=== PATIENT | female | born 1960 | race African-American/Black ===

== ENCOUNTER 2017-11-19 09:43 | Day surgery (SDC) | payer OTHER ==
[2017-11-18 15:54] VITALS: BMI 51.7
[2017-11-19] MEDS ORDERED: LIDOCAINE VISCOUS 2% ORAL/TOP 20 ML UNIT-DOSE CUP ONE ×2 (10:11→11:06)
[2017-11-19 10:51] VITALS: TEMP 98.2
[2017-11-19 11:15] VITALS: PULSE 58
[2017-11-19 11:42] VITALS: BP 174/77
== END 2017-11-19 11:46 | disposition home or self-care (01) ==
LOC: JASU-ENDO 09:43
PROVIDERS: ATTEND Surgery
PROC: 0DJ08ZZ Inspection of Upper Intestinal Tract, Via Natural or Artificial Opening Endoscopic (ICD-10-PCS; principal; 2017-11-19 11:00)
DX: E66.01 Morbid (severe) obesity due to excess calories (principal); Z01.818 Encounter for other preprocedural examination; I10 Essential (primary) hypertension; E11.9 Type 2 diabetes mellitus without complications; Z79.84 Long term (current) use of oral hypoglycemic drugs
CPT/HCPCS: 82962

== ENCOUNTER 2017-12-24 06:59 | Observation (INO) | payer OTHER ==
[2017-12-23 10:19] VITALS: BMI 51.1
[2017-12-24] MEDS ORDERED: ACETAMINOPHEN INJECTION 100 ML IVPB ONE (07:14)
[2017-12-24] MEDS ORDERED: BUPIVACAINE HCL/PF 0.5% (5MG/ML) 10 ML VIAL ONE (07:42)
[2017-12-24] MEDS ORDERED: LIDOCAINE HCL/PF 2% SDV 5ML VIAL ONE (09:18)
[2017-12-24] MEDS ORDERED: DEXAMETHASONE SOD PHOSPHATE 4 MG/1 ML VIAL ONE (09:18)
[2017-12-24] MEDS ORDERED: fentaNYL CITRATE 250 MCG/5 ML VIAL ONE (09:18)
[2017-12-24] MEDS ORDERED: PROPOFOL 20 ML ONE ×2 (09:18)
[2017-12-24] MEDS ORDERED: ROCURONIUM BROMIDE 50 MG/5 ML VIAL ONE ×2 (09:19)
--- NOTE | 2017-12-24 09:47 | HP ---
Admitting History and Physical - Admission Chief Complaint: Morbid obesity History Source: Patient Limitations to Obtaining History: No Limitations - Past Medical History Cardiovascular: Yes: CAD, HTN, Hyperlipdemia Pulmonary: Yes: Sleep Apnea Endocrine: Yes: Diabetes Mellitus - Past Surgical History Past Surgical History: Yes: Hysterectomy - Smoking History Smoking history: Never smoked Have you smoked in the past 12 months: No - Alcohol/Substance Use Hx Alcohol Use: No Home Medications - Allergies Allergies/Adverse Reactions: Allergies Allergy/AdvReac Type Severity Reaction Status Date / Time No Known Allergies Allergy Verified 12/24/17 08:20 - Home Medications Home Medications: Ambulatory Orders Atorvastatin Ca [Lipitor] 40 mg PO HS 11/18/17 Canagliflozin [Invokana] 100 mg PO DAILY 11/18/17 Liraglutide [Victoza -] 0.6 mg SQ DAILY@0700 11/18/17 Losartan Potassium 50 mg PO DAILY 11/18/17 Nifedipine [Procardia Xl] 1 tab PO DAILY 11/18/17 metFORMIN HCL [Metformin HCl] 500 mg PO BID 11/18/17 Family Disease History - Family Disease History Family History: Unremarkable Review of Systems - Review of Systems Constitutional: denies: Chills, Fever HENT: reports: No Symptoms Neck: reports: No Symptoms Cardiovascular: reports: No Symptoms Respiratory: reports: No Symptoms Gastrointestinal: reports: No Symptoms Neurological: denies: Change in LOC Pain Intensity: 0 Physical Examination Vital Signs: Vital Signs Temperature 97.6 F 12/24/17 08:20 Pulse Rate 61 12/24/17 08:20 Respiratory Rate 20 12/24/17 08:20 Blood Pressure 144/80 12/24/17 08:20 O2 Sat by Pulse Oximetry (%) 98 12/24/17 08:14 Constitutional: Yes: Calm Neck: Yes: WNL Cardiovascular: Yes: Regular Rate and Rhythm Respiratory: Yes: CTA Bilaterally Gastrointestinal: Yes: Soft, Abdomen, Obese Neurological: Yes: Alert, Oriented Problem List - Problems (1) Diabetes mellitus type 2 in obese Code(s): E11.69 - TYPE 2 DIABETES MELLITUS WITH OTHER SPECIFIED COMPLICATION; E66.9 - OBESITY, UNSPECIFIED (2) Hypertension Code(s): I10 - ESSENTIAL (PRIMARY) HYPERTENSION Qualifiers: Hypertension type: unspecified Qualified Code(s): I10 - Essential (primary ) hypertension (3) Morbid obesity due to excess calories Code(s): E66.01 - MORBID (SEVERE) OBESITY DUE TO EXCESS CALORIES (4) Obstructive sleep apnea treated with continuous positive airway pressure ( CPAP) Code(s): G47.33 - OBSTRUCTIVE SLEEP APNEA (ADULT) (PEDIATRIC); Z99.89 - DEPENDENCE ON OTHER ENABLING MACHINES AND DEVICES (5) BMI 50.0-59.9, adult Code(s): Z68.43 - BODY MASS INDEX (BMI) 50-59.9 , ADULT Assessment/Plan Laparoscopic possible open vertical sleeve gastrectomy, possible liver biopsy, EGD
--- NOTE | 2017-12-24 11:05 | PN ---
Progress Note (short form) - Note Progress Note: Patient cancelled due to persistent elevated hypertension despite medication given by anesthesia Her crucible packer was consulted and her primary made aware This was explained to her and her daughter They understood and agreed Will wait for discharge until BP controlled Recommended follow up with primary care doctor and crucible packer Problem List - Problems (1) Diabetes mellitus type 2 in obese Code(s): E11.69 - TYPE 2 DIABETES MELLITUS WITH OTHER SPECIFIED COMPLICATION; E66.9 - OBESITY, UNSPECIFIED (2) Hypertension Code(s): I10 - ESSENTIAL (PRIMARY) HYPERTENSION Qualifiers: Hypertension type: unspecified Qualified Code(s): I10 - Essential (primary ) hypertension (3) Morbid obesity due to excess calories Code(s): E66.01 - MORBID (SEVERE) OBESITY DUE TO EXCESS CALORIES (4) Obstructive sleep apnea treated with continuous positive airway pressure ( CPAP) Code(s): G47.33 - OBSTRUCTIVE SLEEP APNEA (ADULT) (PEDIATRIC); Z99.89 - DEPENDENCE ON OTHER ENABLING MACHINES AND DEVICES (5) BMI 50.0-59.9, adult Code(s): Z68.43 - BODY MASS INDEX (BMI) 50-59.9 , ADULT
--- NOTE | 2017-12-24 15:26 | CON.CARD ---
Cardiology Consult (text) - Consultation Consultation Note: Cardiology Patient seen and examined, elective bariatric surgery cancelled today due to hypertension. Of note, she was seen recently in office by Dr. Luther with BP 140/90. On ROS: she denies headache, visual changes, CP, SOB. She feels fine but didn't take her Hyzaar 50/12.5mg nor her Procardia XL 30mg this morning. (Should have taken with sip of H2O). Exam Selected Entries No distress No carotid bruits S1, 2. RRR. No murmurs. NSR. Chest CTA abd obese, NT. No bruits Ext no edema 12/24/17 12/24/17 12/24/17 10:43 11:08 13:35 Temperature 98 F Pulse Rate 77 63 Blood Pressure 197/92 12/24/17 15:21 Temperature Pulse Rate Blood Pressure 197/96 IMP: Chronic HTN, moderately elevated in setting of not taking meds. Asymptomatic. Obesity DM REC: Usual PO home meds now. Re-check BP in one hour. October d/c home when BP < 170/90 with close outpatient f/u Agree with rescheduling elective procedure.
[2017-12-24] MEDS ORDERED: LOSARTAN 50MG/HCTZ 12.5MG 1 TAB (FP) PO SCH (15:30)
[2017-12-24] MEDS ORDERED: LOSARTAN 50MG/HCTZ 12.5MG 1 TAB (FP) PO ONE ×2 (15:47→18:50)
[2017-12-24] MEDS ORDERED: NIFEdipine E.R. 30 MG TABLET (FP) PO ONE (15:47)
[2017-12-24] MEDS ORDERED: LOSARTAN POTASSIUM 50 MG TABLET (FP) PO ONE (20:15)
[2017-12-24] MEDS ORDERED: HYDROCHLOROTHIAZIDE 12.5 MG CAPSULE (FP) PO ONE (20:15)
[2017-12-24] MEDS: hydrALAZINE HCL 10 MG TABLET PO SCH (21:12)
[2017-12-24] MEDS: NIFEdipine E.R. 30 MG TABLET (FP) PO SCH (21:16)
[2017-12-25] MEDS: hydrALAZINE HCL 10 MG TABLET PO SCH (05:49)
[2017-12-25] MEDS ORDERED: hydrALAZINE HCL 10 MG TABLET PO SCH (06:00)
[2017-12-25] MEDS: INSULIN SLIDING SCALE (NOVOLOG) 1 VIAL SQ SCH ×2 (06:12→11:45)
[2017-12-25] MEDS ORDERED: metFORMIN HCL 500 MG TABLET (FP) PO SCH (07:00)
[2017-12-25] MEDS ORDERED: LIRAGLUTIDE 0.6 MG/0.1 ML PEN.INJCTR SQ SCH (07:00)
--- NOTE | 2017-12-25 08:19 | PN ---
Progress Note, Physician Chief Complaint: BP much improved, asymptomatic Dr. Harper was called several hours after I saw her late yest afternoon and had to give additional 50/12.5 of Hyzaar - Current Medication List Current Medications: Active Medications Atorvastatin Calcium (Lipitor -) 40 mg PO HS [facility] Heparin Sodium (Porcine) (Heparin -) 5,000 unit SQ BID [facility] Hydrochlorothiazide (Hctz -) 25 mg PO DAILY [facility] Insulin Aspart (Novolog Vial Sliding Scale -) 1 vial SQ ACHS [facility]; Protocol Last Admin: 12/25/17 06:12 Dose: Not Given Liraglutide (Victoza -) 0.6 mg SQ DAILY@0700 [facility] Last Admin: 12/25/17 06:19 Dose: 0.6 mg Losartan Potassium (Cozaar -) 100 mg PO DAILY [facility] Metformin HCl (Glucophage -) 500 mg PO BIDAC [facility] Last Admin: 12/25/17 06:12 Dose: 500 mg Nifedipine (Procardia Xl -) 30 mg PO DAILY [facility] Last Admin: 12/24/17 21:16 Dose: Not Given Non-Formulary Medication (Canagliflozin [Invokana]) 100 mg PO DAILY [facility] - Objective Vital Signs: Vital Signs Temperature 98.0 F 12/25/17 06:00 Pulse Rate 68 12/25/17 06:00 Respiratory Rate 18 12/25/17 06:00 Blood Pressure 148/67 12/25/17 06:00 O2 Sat by Pulse Oximetry (%) 99 12/25/17 01:45 Constitutional: Yes: No Distress, Calm Cardiovascular: Yes: Regular Rate and Rhythm Respiratory: Yes: CTA Bilaterally Gastrointestinal: Yes: Soft, Abdomen, Obese Edema: No Neurological: Yes: Alert, Oriented ...Motor Strength: WNL Assessment/Plan IMP: Chronic HTN, moderately elevated in setting of not taking meds. Asymptomatic. Obesity DM REC: 1. Check Labs (K+, creat) 2. Agree with increasing her home Hyzaar dose to 100/25mg (Losartan/HCT); continue same dose Procardia XL (Nifedipine). Do not think she needs Hydralazine, will d/c. 3. If labs ok, can d/c home with meds as above and she should f/u in office Thursday with Dr. Luther for BP check and for re-eval for bariatric surgery which was rescheduled. Thanks
--- NOTE | 2017-12-25 08:19 | PN ---
Progress Note, Physician - Current Medication List Current Medications: Active Medications Atorvastatin Calcium (Lipitor -) 40 mg PO HS [facility] Heparin Sodium (Porcine) (Heparin -) 5,000 unit SQ BID [facility] Hydrochlorothiazide (Hctz -) 25 mg PO DAILY [facility] Insulin Aspart (Novolog Vial Sliding Scale -) 1 vial SQ ACHS [facility]; Protocol Last Admin: 12/25/17 06:12 Dose: Not Given Liraglutide (Victoza -) 0.6 mg SQ DAILY@0700 [facility] Last Admin: 12/25/17 06:19 Dose: 0.6 mg Losartan Potassium (Cozaar -) 100 mg PO DAILY [facility] Metformin HCl (Glucophage -) 500 mg PO BIDAC [facility] Last Admin: 12/25/17 06:12 Dose: 500 mg Nifedipine (Procardia Xl -) 30 mg PO DAILY [facility] Last Admin: 12/24/17 21:16 Dose: Not Given Non-Formulary Medication (Canagliflozin [Invokana]) 100 mg PO DAILY [facility] - Objective Vital Signs: Vital Signs Temperature 98.0 F 12/25/17 06:00 Pulse Rate 68 12/25/17 06:00 Respiratory Rate 18 12/25/17 06:00 Blood Pressure 148/67 12/25/17 06:00 O2 Sat by Pulse Oximetry (%) 99 12/25/17 01:45
[2017-12-25] MEDS ORDERED: PT OWN MED DRAWER 7, Y5N ONE ×2 (09:49→09:59)
[2017-12-25] MEDS: NIFEdipine E.R. 30 MG TABLET (FP) PO SCH (09:53)
[2017-12-25] MEDS ORDERED: HYDROCHLOROTHIAZIDE 25 MG TABLET (FP) PO SCH (10:00)
[2017-12-25] MEDS ORDERED: LOSARTAN POTASSIUM 50 MG TABLET (FP) PO SCH ×2 (10:00)
[2017-12-25] MEDS ORDERED: HEPARIN NA (PORCINE) 5,000 UNITS/ML 1ML VIAL SQ SCH (10:00)
[2017-12-25] MEDS ORDERED: PATIENT'S OWN MEDICATION (NON-FORMULARY) (Canagliflozin [Invokana] 100 MG) PO SCH ×2 (10:00→11:00)
[2017-12-25] MEDS ORDERED: NIFEdipine E.R. 30 MG TABLET (FP) PO SCH (10:00)
[2017-12-25 10:04] VITALS: TEMP 98.6
[2017-12-25 11:31] LABS: ANION GAP 9 (8-16); BLOOD UREA NITROGEN 9 mg/dL (7-18); CALCIUM 9.1 mg/dL (8.5-10.1); CHLORIDE 104 mmol/L (98-107); CO2 29 mmol/L (21-32); GLUCOSE,RANDOM 169 mg/dL (74-106); POTASSIUM 3.8 mmol/L (3.5-5.1); SODIUM 142 mmol/L (136-145)
--- NOTE | 2017-12-25 12:07 | ECHO ---
Name: LAMBERT, COLIN Exam:Adult Echocardiogram Study Date: 12/25/2017 10:53 AM Reason For Study: htn accelerated Height: 60 in Weight: 262 lb BSA: 2.1 m2 MMode/2D Measurements & Calculations IVSd: 0.96 cm Ao root diam: 3.0 cm LVIDd: 5.0 cm LA dimension: 3.6 cm LVIDs: 2.9 cm ACS: 1.8 cm LVPWd: 1.2 cm IVSs: 1.2 cm LVPWs: 1.4 cm EDV(Teich): 118.4 ml ESV(Teich): 31.0 ml Doppler Measurements & Calculations MV E max osman: 73.6 cm/sec Ao V2 max: 146.6 cm/sec MV A max osman: 87.5 cm/sec Ao max P.6 mmHg MV E/A: 0.84 Ao V2 mean: 113.3 cm/sec Ao mean P.6 mmHg Ao V2 VTI: 29.9 cm Med Peak E' Osman: 4.9 cm/sec Med E/e': 14.9 Lat Peak E' Osman: 6.3 cm/sec Lat E/e': 11.8 Left Ventricle There is mild concentric left ventricular hypertrophy. Left ventricular systolic function is normal. Right Ventricle The right ventricle is normal in size and function. Atria Normal left and right atrial size and function. Mitral Valve The mitral valve is normal in structure and function. There is no mitral valve stenosis. There is tra ce to mild mitral regurgitation. Tricuspid Valve The tricuspid valve is normal in structure and function. No tricuspid regurgitation. Aortic Valve The aortic valve opens well. No hemodynamically significant valvular aortic stenosis. Pulmonic Valve The pulmonic valve is not well seen, but is grossly normal. There is no pulmonic valvular stenosis. Great Vessels The aortic root is normal size. Pericardium/Pleura There is no pericardial effusion. Interpretation Summary There is mild concentric left ventricular hypertrophy. Left ventricular systolic function is normal. The right ventricle is normal in size and function. There is trace to mild mitral regurgitation. There is no pericardial effusion. MD Abner Arceo 12/25/2017 12:07 PM
[2017-12-25 14:37] VITALS: BP 147/77; PULSE 68
[2017-12-25] MEDS ORDERED: ATORVASTATIN CA 40 MG TABLET (FP) PO SCH (22:00)
== END 2017-12-25 14:59 | disposition home or self-care (01) ==
LOC: JSAMEDAYSX 06:59 → UNDOADMIN 06:59 → JASUSAT 06:59 → EDSTATUS 08:00 → J8W 20:00 → JASUSAT 20:00 → J8W 12-25 01:44
PROVIDERS: ADMIT Internal Medicine; ATTEND Surgery
PROC: 0DB64ZZ Excision of Stomach, Percutaneous Endoscopic Approach (ICD-10-PCS; principal; 2017-12-25)
PROC: 3E033GC Introduction of Other Therapeutic Substance into Peripheral Vein, Percutaneous Approach (ICD-10-PCS; 2017-12-25)
DX: E66.01 Morbid (severe) obesity due to excess calories (principal); I10 Essential (primary) hypertension; I25.10 Atherosclerotic heart disease of native coronary artery without angina pectoris; E78.5 Hyperlipidemia, unspecified; E11.69 Type 2 diabetes mellitus with other specified complication; G47.33 Obstructive sleep apnea (adult) (pediatric); Z99.89 Dependence on other enabling machines and devices; Z68.43 Body mass index [BMI] 50.0-59.9, adult; Z90.710 Acquired absence of both cervix and uterus; Z79.84 Long term (current) use of oral hypoglycemic drugs; Z53.09 Procedure and treatment not carried out because of other contraindication
CPT/HCPCS: 36415; 80048; 82962; 86850; 86900; 86901; 93306-TC; G0378; J0131; J1644

== ENCOUNTER 2018-01-14 09:00 | Inpatient (IN) | payer OTHER ==
[2018-01-11 16:35] VITALS: BMI 48.0
[~2018-01-14 09:00] MED LIST: BUPIVACAINE HCL/PF (5 MG/ML) 30 ML VIAL IJ ONE
[2018-01-14] MEDS ORDERED: PNEUMOC 13-VAL CONJ-DIP CRM/PF 0.5 ML DISP.SYRIN IM ONE (11:17)
--- NOTE | 2018-01-14 13:01 | HP ---
Admitting History and Physical - Admission Chief Complaint: Morbid obesity History Source: Patient Limitations to Obtaining History: No Limitations - Past Medical History Cardiovascular: Yes: CAD, HTN, Hyperlipdemia Pulmonary: Yes: Sleep Apnea Endocrine: Yes: Diabetes Mellitus - Past Surgical History Past Surgical History: Yes: Hysterectomy - Smoking History Smoking history: Never smoked Have you smoked in the past 12 months: No - Alcohol/Substance Use Hx Alcohol Use: Yes (occas) Home Medications - Allergies Allergies/Adverse Reactions: Allergies Allergy/AdvReac Type Severity Reaction Status Date / Time No Known Allergies Allergy Verified 01/11/18 16:42 - Home Medications Home Medications: Ambulatory Orders Atorvastatin Ca [Lipitor] 40 mg PO HS 11/18/17 Canagliflozin [Invokana] 100 mg PO DAILY 11/18/17 Liraglutide [Victoza -] 0.6 mg SQ DAILY@0700 11/18/17 Nifedipine [Procardia Xl] 1 tab PO DAILY 11/18/17 metFORMIN HCL [Metformin HCl] 500 mg PO BID 11/18/17 Aspirin Coated [Ecotrin -] 81 mg PO DAILY 01/11/18 Losartan 50Mg/Hctz 12.5MG [Hyzaar -] 1 tab PO DAILY 01/11/18 Family Disease History - Family Disease History Family History: Unremarkable Review of Systems - Review of Systems Constitutional: denies: Chills, Fever HENT: reports: No Symptoms Neck: reports: No Symptoms Cardiovascular: denies: Chest Pain Respiratory: denies: Cough Gastrointestinal: denies: Abdominal Pain Neurological: reports: No Symptoms Pain Intensity: 0 Physical Examination Vital Signs: Vital Signs Temperature 97.6 F 01/14/18 10:55 Pulse Rate 78 01/14/18 10:55 Respiratory Rate 20 01/14/18 10:55 Blood Pressure 102/62 01/14/18 10:55 O2 Sat by Pulse Oximetry (%) 98 01/14/18 10:49 Constitutional: Yes: Calm HENT: Yes: WNL Neck: Yes: WNL Cardiovascular: Yes: WNL Respiratory: Yes: Regular Gastrointestinal: Yes: Soft, Abdomen, Obese Neurological: Yes: Alert, Oriented Problem List - Problems (1) Hypercholesteremia Code(s): E78.00 - PURE HYPERCHOLESTEROLEMIA, UNSPECIFIED (2) BMI 50.0-59.9, adult Code(s): Z68.43 - BODY MASS INDEX (BMI) 50-59.9 , ADULT (3) Diabetes mellitus type 2 in obese Code(s): E11.69 - TYPE 2 DIABETES MELLITUS WITH OTHER SPECIFIED COMPLICATION; E66.9 - OBESITY, UNSPECIFIED (4) Hypertension Code(s): I10 - ESSENTIAL (PRIMARY) HYPERTENSION Qualifiers: (5) Morbid obesity due to excess calories Code(s): E66.01 - MORBID (SEVERE) OBESITY DUE TO EXCESS CALORIES (6) Obstructive sleep apnea treated with continuous positive airway pressure ( CPAP) Code(s): G47.33 - OBSTRUCTIVE SLEEP APNEA (ADULT) (PEDIATRIC); Z99.89 - DEPENDENCE ON OTHER ENABLING MACHINES AND DEVICES Assessment/Plan Laparoscopic possible open vertical sleeve gastrectomy possible liver biopsy, EGD
[2018-01-14] MEDS ORDERED: DEXAMETHASONE SOD PHOSPHATE 4 MG/1 ML VIAL ONE (13:13)
[2018-01-14] MEDS ORDERED: SUCCINYLCHOLINE CHLORIDE 200 MG/10 ML VIAL ONE (13:13)
[2018-01-14] MEDS ORDERED: PROPOFOL 20 ML ONE ×2 (13:13→15:18)
[2018-01-14] MEDS ORDERED: LIDOCAINE HCL/PF 2% SDV 5ML VIAL ONE (13:13)
[2018-01-14] MEDS ORDERED: ROCURONIUM BROMIDE 50 MG/5 ML VIAL ONE (13:36)
[2018-01-14] MEDS ORDERED: BUPIVACAINE HCL/PF 0.5% (5MG/ML) 10 ML VIAL ONE (13:40)
[2018-01-14] MEDS ORDERED: ePHEDrine SULFATE 50 MG/1 ML AMPULE ONE (13:46)
[2018-01-14] MEDS ORDERED: ceFAZolin SODIUM 1 GM VIAL IVPB ONE (13:52)
[2018-01-14] MEDS ORDERED: GLYCOPYRROLATE 0.2 MG/1 ML VIAL ONE (14:05)
[2018-01-14] MEDS ORDERED: NEOSTIGMINE METHYLSULFATE 0.5 MG/ML - 10 ML MDV ONE (14:06)
[2018-01-14] MEDS ORDERED: ACETAMINOPHEN INJECTION 100 ML IVPB ONE ×2 (14:34→15:24)
[2018-01-14] MEDS ORDERED: ONDANSETRON 4 MG/2 ML VIAL ONE (15:23)
[2018-01-14] MEDS ORDERED: FAMOTIDINE 20 MG/50 ML IVPB 20 MG/50 ML MG IVPB ONE (15:24)
[2018-01-14] MEDS ORDERED: METOCLOPRAMIDE HCL INJECTION 10 MG/2 ML VIAL ONE (15:24)
[2018-01-14] MEDS ORDERED: HYDROmorphone HCL CARPU-JECT 1 MG/1 ML DISP.SYRIN IVPB PRN (15:33)
[2018-01-14] MEDS ORDERED: ONDANSETRON 4 MG/2 ML VIAL IVPUSH PRN (15:37)
[2018-01-14] MEDS ORDERED: PROMETHAZINE HCL 25 MG/1 ML VIAL IVPB PRN (15:37)
[2018-01-14] MEDS ORDERED: ACETAMINOPHEN 1000 MG/100 ML VIAL (NON FORMULARY) IVPB SCH (15:45)
[2018-01-14] MEDS ORDERED: LACTATED RINGERS SOLUTION 1,000 ML IV SCH (15:45)
--- NOTE | 2018-01-14 15:45 | OP ---
Operative Note - Note: Operative Date: 01/14/18 Pre-Operative Diagnosis: Morbid obesity due to excess calories Operation: Laproscopic sleeve gastrectomy, liver biopsy, and EGD Post-Operative Diagnosis: Same as Pre-op Surgeon: Jose Daugherty Solderer Torch: Jesus Zaldivar Anesthesiologist/RUG SIZER: Bret Castaneda Anesthesia: General Estimated Blood Loss (mls): 30 Fluid Volume Replaced (mls): 1,300 Operative Report Dictated: Yes
--- NOTE | 2018-01-14 15:46 | SURG ---
Surgery Ship Mate Note Ship Mate: Jesus Zaldivar PA-C Date of Service: 01/14/18 Diagnosis: Morbid obesity due to excess calories Procedure: laproscopic sleeve gastrectomy, liver biopsy, and EGD I was present for the entirety of the operative procedure. For further detail, please refer to operative report.
[2018-01-14] MEDS: METOCLOPRAMIDE HCL INJECTION 10 MG/2 ML VIAL IVPUSH SCH ×2 (15:51→21:20)
[2018-01-14 16:07] LABS: HEMATOCRIT 37.9 % (32.4-45.2); MCH 24.8 pg (25.7-33.7); MCHC 31.8 g/dl (32.0-36.0); MEAN CELL VOLUME 78.1 fl (80-96); MEAN PLT VOLUME 8.4 fl (7.5-11.1); PLATELET COUNT 356 K/MM3 (134-434); RBC 4.86 M/mm3 (3.60-5.2); WHITE BLOOD COUNT 14.3 K/mm3 (4.0-10.0)
[2018-01-14] MEDS ORDERED: FAMOTIDINE 20 MG PREMIXED IVPB IVPB ONE (16:15)
[2018-01-14] MEDS: SODIUM CHLORIDE 1,000 ML IV SCH (16:27)
[2018-01-14 16:28] LABS: ALBUMIN 3.7 g/dl (3.4-5.0); ANION GAP 11 (8-16); BLOOD UREA NITROGEN 29 mg/dL (7-18); CALCIUM 9.1 mg/dL (8.5-10.1); CHLORIDE 110 mmol/L (98-107); CO2 25 mmol/L (21-32); CREATININE 1.2 mg/dL (0.55-1.02); GLUCOSE,RANDOM 146 mg/dL (74-106); SGOT/AST 30 U/L (15-37); SGPT/ALT 30 U/L (12-78); SODIUM 146 mmol/L (136-145)
[2018-01-14 16:29] LABS: ALK PHOS 72 U/L (45-117); BILIRUBIN,TOTAL 0.4 mg/dL (0.2-1.0); TOT PROT 7.3 g/dl (6.4-8.2)
[2018-01-14 16:31] LABS: POTASSIUM 2.9 mmol/L (3.5-5.1)
[2018-01-14] MEDS ORDERED: LABETALOL HCL 5 MG/1 ML (100MG/20 ML VIAL) ONE (16:51)
[2018-01-14] MEDS ORDERED: POTASSIUM CHLORIDE 10 MEQ in SODIUM CHLORIDE 100 ML IVPB ONE (17:00)
[2018-01-14] MEDS: ONDANSETRON 4 MG/2 ML VIAL IVPUSH SCH ×2 (17:33→21:20)
[2018-01-14] MEDS ORDERED: LABETALOL HCL 5 MG/1 ML (100MG/20 ML VIAL) IVPUSH ONE (17:45)
[2018-01-14] MEDS: ENOXAPARIN NA (PORCINE) 40 MG/0.4 ML DISP.SYRIN SQ SCH (21:18)
[2018-01-14] MEDS: FAMOTIDINE 20 MG/50 ML IVPB 20 MG/50 ML MG IVPB SCH (21:20)
[2018-01-14] MEDS: ACETAMINOPHEN 1000 MG/100 ML VIAL (NON FORMULARY) IVPB SCH (21:21)
[2018-01-14] MEDS: INSULIN SLIDING SCALE (NOVOLOG) 1 VIAL SQ SCH (21:42)
[2018-01-15] MEDS: ONDANSETRON 4 MG/2 ML VIAL IVPUSH SCH ×6 (02:52→21:01)
[2018-01-15] MEDS: ACETAMINOPHEN 1000 MG/100 ML VIAL (NON FORMULARY) IVPB SCH ×2 (03:22→09:00)
[2018-01-15] MEDS: METOCLOPRAMIDE HCL INJECTION 10 MG/2 ML VIAL IVPUSH SCH ×4 (03:22→20:22)
[2018-01-15] MEDS: INSULIN SLIDING SCALE (NOVOLOG) 1 VIAL SQ SCH ×4 (06:16→21:01)
[2018-01-15 06:33] LABS: HEMATOCRIT 35.6 % (32.4-45.2); HEMOGLOBIN 11.7 GM/dL (10.7-15.3); MCH 25.3 pg (25.7-33.7); MCHC 32.8 g/dl (32.0-36.0); MEAN PLT VOLUME 8.5 fl (7.5-11.1); PLATELET COUNT 327 K/MM3 (134-434); RBC 4.62 M/mm3 (3.60-5.2); RDW 16.6 % (11.6-15.6)
[2018-01-15 07:05] LABS: CHLORIDE 107 mmol/L (98-107); SODIUM 143 mmol/L (136-145)
[2018-01-15 07:12] LABS: ALBUMIN 3.4 g/dl (3.4-5.0); ALK PHOS 70 U/L (45-117); ANION GAP 12 (8-16); BILIRUBIN,TOTAL 0.4 mg/dL (0.2-1.0); BLOOD UREA NITROGEN 16 mg/dL (7-18); CALCIUM 8.6 mg/dL (8.5-10.1); CO2 24 mmol/L (21-32); CREATININE 0.9 mg/dL (0.55-1.02); GLUCOSE,RANDOM 94 mg/dL (74-106); SGOT/AST 50 U/L (15-37); SGPT/ALT 39 U/L (12-78)
[2018-01-15 07:28] LABS: POTASSIUM 2.9 mmol/L (3.5-5.1)
--- NOTE | 2018-01-15 08:23 | PN ---
Progress Note, Physician Chief Complaint: POD # 1 Laproscopic sleeve gastrectomy, liver biopsy, and EGD Patient is known to our service from office: PMH obesity, chronic HTN and DM. Asked to evaluate her post op for elevated BP: 170-180/80-90 Has not yet received her morning BP meds. On ROS: she denies CP, SOB, palps. No headache or neuro changes. Alert in no distress. - Current Medication List Current Medications: Active Medications Acetaminophen (Ofirmev Injection -) 1,000 mg IVPB Q6H [facility] Stop: 01/15/18 09:01 Last Admin: 01/15/18 03:22 Dose: Not Given Atorvastatin Calcium (Lipitor -) 40 mg PO HS [facility] Enoxaparin Sodium (Lovenox -) 40 mg SQ BID [facility] Last Admin: 01/14/18 21:18 Dose: 40 mg Fentanyl (Sublimaze Injection -) 50 mcg IVPUSH [id number] PRN PRN Reason: PAIN-PACU ORDER X 4 DOSES ONLY Last Admin: 01/14/18 16:05 Dose: 50 mcg Hydrochlorothiazide (Hctz -) 12.5 mg PO DAILY [facility] Hydromorphone HCl (Dilaudid Injection -) 1 mg IVPB Q3H PRN PRN Reason: PAIN LEVEL 4 - 6 Famotidine/Sodium Chloride (Pepcid 20 Mg Premixed Ivpb -) 20 mg in 50 mls @ 100 mls/hr IVPB BID [facility] Last Admin: 01/14/18 21:20 Dose: 100 mls/hr Sodium Chloride (Normal Saline -) 1,000 mls @ 150 mls/hr IV ASDIR [facility] Last Admin: 01/14/18 16:27 Dose: 150 mls/hr Insulin Aspart (Novolog Vial Sliding Scale -) 1 vial SQ ACHS [facility]; Protocol Last Admin: 01/15/18 06:16 Dose: Not Given Losartan Potassium (Cozaar -) 50 mg PO DAILY [facility] Metoclopramide HCl (Reglan Injection -) 10 mg IVPUSH Q6H-IV [facility] Last Admin: 01/15/18 03:22 Dose: Not Given Nifedipine (Procardia Xl -) 30 mg PO DAILY [facility] Ondansetron HCl (Zofran Injection) 4 mg IVPUSH Q4H-IV [facility] Last Admin: 01/15/18 05:31 Dose: 4 mg Ondansetron HCl (Zofran Injection) 4 mg IVPUSH Q6H PRN PRN Reason: NAUSEA AND/OR VOMITING Promethazine HCl (Phenergan Injection -) 12.5 mg IVPB Q6H PRN PRN Reason: NAUSEA-FOR RESCUE AFTER 15 MIN - Objective Vital Signs: Vital Signs Temperature 99 F 01/15/18 06:00 Pulse Rate 76 01/15/18 06:00 Respiratory Rate 17 01/15/18 06:00 Blood Pressure 190/89 01/15/18 06:00 O2 Sat by Pulse Oximetry (%) 97 01/15/18 01:00 Constitutional: Yes: No Distress, Calm Eyes: Yes: Conjunctiva Clear Cardiovascular: Yes: Regular Rate and Rhythm Respiratory: Yes: CTA Bilaterally Gastrointestinal: Yes: Soft Edema: No Neurological: Yes: Alert, Oriented ...Motor Strength: WNL Labs: CBC, BMP 01/15/18 05:30 01/15/18 05:30 Laboratory Tests 01/15/18 01/15/18 05:30 05:30 WBC 12.0 H Hgb 11.7 Plt Count 327 Sodium 143 Potassium 2.9 L* Creatinine 0.9 - ....Imaging EKG: Pending Assessment/Plan POD # 1 Laproscopic sleeve gastrectomy, liver biopsy, and EGD HTN DM REC: 1. HTN: -Home BP meds to be administered. -Should normalize with usual meds -Goal BP 140/90 for age group 2. Hypokalemia: -Repleting this AM -Repeat BMP in AM -ECG 3. DM: -Hold PO meds until tolerating full PO -consider sliding scale as needed. 4. DVT prophylaxis: -As per surgical team Thank you.
[2018-01-15] MEDS ORDERED: POTASSIUM CHLORIDE 10 MEQ in SODIUM CHLORIDE 100 ML IVPB ONE (08:30)
[2018-01-15] MEDS ORDERED: KCL 10 MEQ IVPB 10 MEQ/100 ML INFUS.BAG IVPB SCH ×3 (08:30→23:15)
[2018-01-15] MEDS: LOSARTAN POTASSIUM 50 MG TABLET (FP) PO SCH (09:00)
[2018-01-15] MEDS: HYDROCHLOROTHIAZIDE 12.5 MG CAPSULE (FP) PO SCH (09:00)
[2018-01-15] MEDS: ENOXAPARIN NA (PORCINE) 40 MG/0.4 ML DISP.SYRIN SQ SCH ×2 (09:00→21:06)
--- NOTE | 2018-01-15 09:07 | PN ---
Progress Note (short form) - Note Progress Note: Anesthesia post op Pt seen and examined S:Alert and awake comfortable O: Vital Signs Temperature 99 F 01/15/18 06:00 Pulse Rate 76 01/15/18 06:00 Respiratory Rate 17 01/15/18 06:00 Blood Pressure 190/89 01/15/18 06:00 O2 Sat by Pulse Oximetry (%) 97 01/15/18 01:00 CBC, BMP 01/15/18 05:30 01/15/18 05:30 A/P Current Active Problems Hypercholesteremia (Acute) s/p lap sleeve gastrectomy Doing well post op Continue current care Cornell Lozoya MD
[2018-01-15] MEDS: SODIUM CHLORIDE 1,000 ML IV SCH (09:40)
[2018-01-15] MEDS: FAMOTIDINE 20 MG/50 ML IVPB 20 MG/50 ML MG IVPB SCH ×2 (09:40→21:01)
[2018-01-15] MEDS: NIFEdipine E.R. 30 MG TABLET (FP) PO SCH (09:40)
--- NOTE | 2018-01-15 09:46 | PN ---
Progress Note (short form) - Note Progress Note: POD#1 Pt without any compaints of CP/SOB. ABd pain under control. No nausea. Voiding on her own. Vital Signs Period Temp Pulse Resp BP Sys/Portillo Pulse Ox Last 24 Hr 97.6 F-99 F 68-83 16-28 102-190/52-89 96-98 GEn: appears comfortable Cv: RRR Lungs: CTA b/l anteriorly ABD: obese, inc c/d/i with bandaids. No ecchymosis. Incision tender to touch LE: no calf tenderness or swelling noted b/l. SCDs in place CBC, BMP 01/15/18 05:30 //18 05:30 A/p: 57 yo female s/p lap vertical sleeve, POD#1 K repleted yesterday and plan for 2 runs today, will recheck BMP/mag/phos at 1500 and replete as needed UGI series today OOB/ambulate DVT px with lovenox SQ/SCDs/ambulate BP elevated this am, plan to take regular oral BP meds this am, continue to monitor D/w Dr. Daugherty <Ce Escobedo - Last Filed: 01/15/18 09:47> - Note Progress Note: Agree Pain was controlled UGI- no leak/obstruction Planned for discharge 01/16/18 once BP controlled <Jose Daugherty - Last Filed: 01/19/18 08:58> Problem List - Problems (1) Hypercholesteremia Code(s): E78.00 - PURE HYPERCHOLESTEROLEMIA, UNSPECIFIED (2) BMI 50.0-59.9, adult Code(s): Z68.43 - BODY MASS INDEX (BMI) 50-59.9 , ADULT (3) Diabetes mellitus type 2 in obese Code(s): E11.69 - TYPE 2 DIABETES MELLITUS WITH OTHER SPECIFIED COMPLICATION; E66.9 - OBESITY, UNSPECIFIED (4) Hypertension Code(s): I10 - ESSENTIAL (PRIMARY) HYPERTENSION Qualifiers: (5) Morbid obesity due to excess calories Code(s): E66.01 - MORBID (SEVERE) OBESITY DUE TO EXCESS CALORIES (6) Obstructive sleep apnea treated with continuous positive airway pressure ( CPAP) Code(s): G47.33 - OBSTRUCTIVE SLEEP APNEA (ADULT) (PEDIATRIC); Z99.89 - DEPENDENCE ON OTHER ENABLING MACHINES AND DEVICES <Jose Daugherty - Last Filed: 01/19/18 08:58>
[2018-01-15] MEDS ORDERED: oxyCODONE HCL 5 MG TABLET PO PRN (17:24)
[2018-01-15] MEDS ORDERED: SODIUM CHLORIDE 1,000 ML IV SCH (17:30)
[2018-01-15 17:45] LABS: ANION GAP 10 (8-16); BLOOD UREA NITROGEN 10 mg/dL (7-18); CALCIUM 8.5 mg/dL (8.5-10.1); CHLORIDE 105 mmol/L (98-107); CO2 26 mmol/L (21-32); CREATININE 0.8 mg/dL (0.55-1.02); GLUCOSE,RANDOM 99 mg/dL (74-106); MAGNESIUM 1.4 mg/dL (1.8-2.4); PHOSPHOROUS 2.5 mg/dL (2.5-4.9); SODIUM 141 mmol/L (136-145)
[2018-01-15 17:48] LABS: POTASSIUM 2.6 mmol/L (3.5-5.1)
[2018-01-15] MEDS ORDERED: POTASSIUM CHLORIDE TABS 20 MEQ TABLET.ER (FP) PO ONE (18:00)
[2018-01-15] MEDS ORDERED: LOSARTAN POTASSIUM 50 MG TABLET (FP) PO ONE (21:30)
[2018-01-15] MEDS ORDERED: NIFEdipine E.R. 30 MG TABLET (FP) PO ONE (21:30)
[2018-01-15] MEDS ORDERED: ATORVASTATIN CA 40 MG TABLET (FP) PO SCH (22:00)
[2018-01-15] MEDS ORDERED: MAGNESIUM SULF 50% (8.12 MEQ/2 ML-1 GM VIAL) IVPB ONE (22:15)
[2018-01-15] MEDS ORDERED: MAGNESIUM 1GM/D5W - 1 GM/100 ML IVPB IVPB ONE (22:45)
[2018-01-16] MEDS: METOCLOPRAMIDE HCL INJECTION 10 MG/2 ML VIAL IVPUSH SCH ×3 (02:06→15:09)
[2018-01-16] MEDS: ONDANSETRON 4 MG/2 ML VIAL IVPUSH SCH ×4 (02:26→13:36)
[2018-01-16] MEDS: INSULIN SLIDING SCALE (NOVOLOG) 1 VIAL SQ SCH ×2 (06:14→11:24)
[2018-01-16 06:52] LABS: BASO % 0.9 % (0-2.0); EOS % 2.8 % (0-4.5); HEMATOCRIT 37.6 % (32.4-45.2); HEMOGLOBIN 12.3 GM/dL (10.7-15.3); LYMPH % 32.6 % (8-40); MCH 25.4 pg (25.7-33.7); MCHC 32.7 g/dl (32.0-36.0); MEAN CELL VOLUME 77.7 fl (80-96); MEAN PLT VOLUME 8.5 fl (7.5-11.1); MONO % 5.5 % (3.8-10.2); NEUT % 58.2 % (42.8-82.8); PLATELET COUNT 354 K/MM3 (134-434); RBC 4.84 M/mm3 (3.60-5.2); RDW 16.7 % (11.6-15.6)
[2018-01-16 07:22] LABS: ANION GAP 10 (8-16); BLOOD UREA NITROGEN 7 mg/dL (7-18); CALCIUM 8.5 mg/dL (8.5-10.1); CHLORIDE 101 mmol/L (98-107); CO2 28 mmol/L (21-32); GLUCOSE,RANDOM 94 mg/dL (74-106); MAGNESIUM 1.6 mg/dL (1.8-2.4); POTASSIUM 3.1 mmol/L (3.5-5.1); SODIUM 139 mmol/L (136-145)
[2018-01-16 07:24] LABS: CREATININE 0.9 mg/dL (0.55-1.02)
--- NOTE | 2018-01-16 09:14 | EKG ---
Test Reason : Blood Pressure : / mmHG Vent. Rate : 069 BPM Atrial Rate : 069 BPM P-R Int : 210 ms QRS Dur : 112 ms QT Int : 390 ms P-R-T Axes : 063 -39 035 degrees QTc Int : 417 ms SINUS RHYTHM WITH 1ST DEGREE A-V BLOCK LEFT AXIS DEVIATION ABNORMAL ECG NO PREVIOUS ECGS AVAILABLE Confirmed by KAMILLE VANG MD ([id number]) on 01/16/2018 9:14:02 AM Referred By: [facility] Confirmed By:KAMILLE VANG MD
--- NOTE | 2018-01-16 10:01 | PN ---
Progress Note, Physician - Current Medication List Current Medications: Active Medications Atorvastatin Calcium (Lipitor -) 40 mg PO HS [facility] Last Admin: 01/15/18 21:01 Dose: 40 mg Enoxaparin Sodium (Lovenox -) 40 mg SQ BID [facility] Last Admin: 01/15/18 21:06 Dose: 40 mg Hydrochlorothiazide (Hctz -) 12.5 mg PO DAILY [facility] Last Admin: 01/15/18 09:00 Dose: 12.5 mg Hydromorphone HCl (Dilaudid Injection -) 1 mg IVPB Q3H PRN PRN Reason: PAIN LEVEL 4 - 6 Famotidine/Sodium Chloride (Pepcid 20 Mg Premixed Ivpb -) 20 mg in 50 mls @ 100 mls/hr IVPB BID [facility] Last Admin: 01/15/18 21:01 Dose: 100 mls/hr Sodium Chloride (Normal Saline -) 1,000 mls @ 150 mls/hr IV ASDIR [facility] Last Admin: 01/15/18 09:40 Dose: 150 mls/hr Sodium Chloride (Normal Saline -) 1,000 mls @ 75 mls/hr IV ASDIR [facility] Last Admin: 01/15/18 18:07 Dose: 75 mls/hr Insulin Aspart (Novolog Vial Sliding Scale -) 1 vial SQ ACHS [facility]; Protocol Last Admin: 01/16/18 06:14 Dose: Not Given Losartan Potassium (Cozaar -) 50 mg PO DAILY [facility] Last Admin: 01/15/18 09:00 Dose: 50 mg Metoclopramide HCl (Reglan Injection -) 10 mg IVPUSH Q6H-IV [facility] Last Admin: 01/16/18 08:59 Dose: 10 mg Nifedipine (Procardia Xl -) 30 mg PO DAILY [facility] Last Admin: 01/15/18 09:40 Dose: 30 mg Ondansetron HCl (Zofran Injection) 4 mg IVPUSH Q4H-IV [facility] Last Admin: 01/16/18 06:14 Dose: 4 mg Ondansetron HCl (Zofran Injection) 4 mg IVPUSH Q6H PRN PRN Reason: NAUSEA AND/OR VOMITING Oxycodone HCl (Roxicodone -) 5 mg PO Q4H PRN PRN Reason: PAIN LEVEL 4 - 6 Promethazine HCl (Phenergan Injection -) 12.5 mg IVPB Q6H PRN PRN Reason: NAUSEA-FOR RESCUE AFTER 15 MIN - Objective Vital Signs: Vital Signs Temperature 99.9 F H 01/16/18 02:00 Pulse Rate 72 01/16/18 06:12 Respiratory Rate 18 01/16/18 06:12 Blood Pressure 108/59 01/16/18 06:12 O2 Sat by Pulse Oximetry (%) 97 01/15/18 18:49 Eyes: Yes: WNL, Conjunctiva Clear, EOM Intact HENT: Yes: WNL, Atraumatic, Normocephalic Neck: Yes: WNL, Supple, Trachea Midline Cardiovascular: Yes: WNL, Regular Rate and Rhythm Respiratory: Yes: WNL, Regular, CTA Bilaterally Gastrointestinal: Yes: WNL, Normal Bowel Sounds Genitourinary: Yes: WNL Musculoskeletal: Yes: WNL Extremities: Yes: WNL Edema: No Integumentary: Yes: WNL Neurological: Yes: WNL, Alert, Oriented ...Motor Strength: WNL Psychiatric: Yes: WNL Labs: CBC, BMP 01/16/18 05:30 01/16/18 05:30 Assessment/Plan POD # 2 Laproscopic sleeve gastrectomy, liver biopsy, and EGD HTN DM REC: 1. HTN: -increase cozaar and procardia if needed (extra dose given last night) 2. Hypokalemia: -Repleting this AM -Repeat BMP in AM -ECG 3. DM: -Hold PO meds until tolerating full PO -consider sliding scale as needed. 4. DVT prophylaxis: -As per surgical team coverage dr. Arceo
[2018-01-16] MEDS: FAMOTIDINE 20 MG/50 ML IVPB 20 MG/50 ML MG IVPB SCH (10:10)
[2018-01-16] MEDS: NIFEdipine E.R. 30 MG TABLET (FP) PO SCH (10:11)
[2018-01-16] MEDS: HYDROCHLOROTHIAZIDE 12.5 MG CAPSULE (FP) PO SCH (10:11)
[2018-01-16] MEDS: ENOXAPARIN NA (PORCINE) 40 MG/0.4 ML DISP.SYRIN SQ SCH (10:12)
[2018-01-16] MEDS: LOSARTAN POTASSIUM 50 MG TABLET (FP) PO SCH (10:12)
[2018-01-16 11:55] VITALS: BP 150/60; PULSE 69; TEMP 98.8
[2018-01-16] MEDS ORDERED: POTASSIUM CHLORIDE ORAL LIQUID 20 MEQ/15 ML PO ONE (13:45)
[2018-01-16] MEDS ORDERED: MAGNESIUM SULFATE IN WATER 2 GM/50 ML IVPB IVPB ONE (13:45)
--- NOTE | 2018-01-18 16:44 | PATH ---
Surgical Pathology Report Patient Name: COLIN LAMBERT [facility]. Rec. #: [id number] /Age/Gender: 1960 (Age: 57) / F Account: [id number] Location: 4 W TELEMETRY U Taken: 01/14/2018 Received: 01/15/2018 Reported: 01/18/2018 Physicians: Jose Daugherty M.D. Specimen(s) Received A: GREATER CURVATURE STOMACH B: LIVER BIOPSY Clinical History Morbid obesity Final Diagnosis A. STOMACH, GREATER CURVATURE, LAPAROSCOPIC VERTICAL SLEEVE GASTRECTOMY: PORTION OF STOMACH WITH MODERATE CHRONIC GASTRITIS. IMMUNOHISTOCHEMICAL STAIN FOR H. PYLORI IS NEGATIVE. B. LIVER, BIOPSY: LIVER PARENCHYMA WITH MILD PATCHY STEATOSIS (~20%). NO INCREASE IN IRON AND FIBROSIS ON PERFORMED SPECIAL STAINS (IRON AND TRICHROME). Electronically Signed Isela Butts M.D. Gross Description A. Received in formalin, labeled "greater curvature of stomach," is a 122 gram, 19.0 x 4.0 x 2.8 cm. portion of stomach with a stapled margin of resection. The serosa is guerin-gama with minimal attached fat. The mucosa is guerin-pink with normal folds. No mucosal masses are identified. Miller First sections are submitted in one cassette. B. Received in formalin labeled "liver biopsy," is a 1.5 x 1.2 x 0.9 cm guerin, irregular portion of soft tissue, consistent with a liver biopsy. The specimen is trisected and entirely submitted in one cassette. 01/15/2018 saudi01/15/2018
== END 2018-01-16 15:59 | disposition home or self-care (01) | DRG 403 ==
LOC: EDSTATUS 09:00 → JSAMEDAYSX 09:57 → J4W 17:45
PROVIDERS: ADMIT Surgery; ATTEND Surgery
PROC: 0DB64Z3 Excision of Stomach, Percutaneous Endoscopic Approach, Vertical (ICD-10-PCS; principal; 2018-01-14 12:00)
PROC: 0DJ08ZZ Inspection of Upper Intestinal Tract, Via Natural or Artificial Opening Endoscopic (ICD-10-PCS; 2018-01-14 12:00)
PROC: 0FB04ZX Excision of Liver, Percutaneous Endoscopic Approach, Diagnostic (ICD-10-PCS; 2018-01-14 12:00)
DX: E66.01 Morbid (severe) obesity due to excess calories (principal); Z68.43 Body mass index [BMI] 50.0-59.9, adult; R16.0 Hepatomegaly, not elsewhere classified; E11.9 Type 2 diabetes mellitus without complications; I10 Essential (primary) hypertension; E78.5 Hyperlipidemia, unspecified; I25.10 Atherosclerotic heart disease of native coronary artery without angina pectoris; Z90.710 Acquired absence of both cervix and uterus; E87.6 Hypokalemia
CPT/HCPCS: 36415; 74241-TC-FY; 80048; 80053; 82962; 83735; 84100; 85025; 85027; 86850; 86900; 86901; 88307-TC; 90670; 93005; 93010; 94010; 94760; J0131; J7030